=== PATIENT | male | born 1945 | race Caucasian/White ===

== ENCOUNTER 2018-10-07 15:12 | Emergency (ER) | payer MEDICARE, BC ==
[2018-10-07] MEDS ORDERED: Lidocaine 1% 20 ML MDV INJECT ONE (15:17)
[2018-10-07] MEDS ORDERED: Bacitracin Oint 1 GM U/D Packet TOP ONE (15:18)
[2018-10-07] MEDS ORDERED: Diphtheria,Pertussis(Acell),Tetanus Vaccine 0.5 ML SDV IM ONE (15:22)
[2018-10-07 15:41] VITALS: BP 124/53
--- NOTE | 2018-10-07 16:48 | EDM.PDOC ---
ED HPI GENERAL MEDICAL PROBLEM - General Chief Complaint: Head Injury Stated Complaint: HEAD WOUND, FALL OFF LADDER Time Seen by Provider: 10/07/18 16:41 Source of Information: Reports: Patient History Limitations: Reports: No Limitations - History of Present Illness INITIAL COMMENTS - FREE TEXT/NARRATIVE: pt fell off of a ladder and hit the rt side of his head on the cement. He was not knocked out. He did have a 2 inch laceration on the rt side of his head. He is covered with blood. He has a pumper in the wound that is causing heavy bleeding. Onset: Today, Sudden Duration: Hour(s): Location: Reports: Head Associated Symptoms: Reports: No Other Symptoms - Related Data Allergies Allergy/AdvReac Type Severity Reaction Status Date / Time epinephrine Allergy Bradycardia Verified 10/07/18 15:29 cottonseed oil Allergy Rash Uncoded 10/07/18 15:29 Home Meds: Home Meds Simvastatin [Zocor] 40 mg PO DAILY 04/22/13 [History] hydroCHLOROthiazide [Hydrochlorothiazide] 12.5 mg PO DAILY 04/22/13 [History] Aspirin [Adult Low Dose Aspirin EC] 1 tab PO DAILY 04/25/13 [History] Multivitamin [Multi Vitamin Daily] 1 tab PO DAILY 04/25/13 [History] Cholecalciferol (Vitamin D3) [Vitamin D3] 1,000 unit PO DAILY 01/19/17 [History] Docusate Sodium [Colace] 100 mg PO DAILY 01/19/17 [History] Lisinopril [Prinivil] 40 mg PO DAILY 01/19/17 [History] Tadalafil [Cialis] 5 mg PO DAILY 01/19/17 [History] amLODIPine Besylate [Amlodipine Besylate] 5 mg PO DAILY 01/19/17 [History] Clopidogrel [Plavix] 1 tab PO DAILY 05/26/18 [History] Finasteride 1 tab PO DAILY 05/26/18 [History] Past Medical History Cardiovascular History: Reports: High Cholesterol, Hypertension Respiratory History: Reports: COPD Genitourinary History: Reports: BPH - Past Surgical History Cardiovascular Surgical History: Reports: Coronary Artery Bypass, Coronary Artery Stent Social & Family History - Tobacco Use Smoking Status *Q: Never Smoker ED ROS GENERAL - Review of Systems Review Of Systems: See Below Constitutional: Reports: No Symptoms HEENT: Reports: No Symptoms, Other (pupils are equal and reactive. ) Respiratory: Reports: No Symptoms Cardiovascular: Reports: No Symptoms Endocrine: Reports: No Symptoms GI/Abdominal: Reports: No Symptoms : Reports: No Symptoms Musculoskeletal: Reports: No Symptoms Skin: Reports: No Symptoms Neurological: Reports: Other (pt has swelling on the rt side of his head and there is a 2 inch laceration with a pumper in the middle of the wound. ) Psychiatric: Reports: No Symptoms ED EXAM, HEAD INJURY - Physical Exam Exam: See Below Text/Narrative:: Pt arrived with a laceration on the rt side of his head with a large pumper in the center. He is alert and oriented. He is on plavix and asa. Exam Limited By: No Limitations General Appearance: Alert, Mild Distress Head: Other ( Pt has a 2 inch laceration on the rt side of the head. The is infiltrated with lidocaine. All hematom,a was expressed. The wound was scrubbed well. Because of the bleeding deep bites were taken with the stitches. The wound was closed tightlt with 3-0 ethilon. The bleeding was brought under control nicely. A cat scan of the head was done. A pressure dressing was applied tightly. ) Ears: Normal TMs Nose: Normal Inspection Throat/Mouth: Normal Inspection Neck: Non-Tender Respiratory: No Respiratory Distress Cardiovascular: Regular Rate, Rhythm GI/Abdominal Exam: Soft, Non-Tender Neurologic: Alert, Oriented x 3, Other (pt has a large swelling on the rt side of his head. He has a 2 inch laceration on the scalp. ) Course - Vital Signs Last Recorded V/S: Last Vital Signs Temp 36.3 C 10/07/18 15:40 Pulse 64 10/07/18 15:40 Resp 14 10/07/18 15:40 BP 124/53 L 10/07/18 15:40 Pulse Ox 98 10/07/18 15:40 - Orders/Labs/Meds Orders: Active Orders 24 hr Category Date Time Status Vaccines to be Administered [RC] PER UNIT ROUTINE Care 10/07/18 15:22 Active Labs: Laboratory Tests 10/07/18 Range/Units 16:17 Hgb 12.3 (12.0-15.0) g/dL Meds: Medications Discontinued Medications Generic Name Dose Route Start Last Admin Trade Name Freq PRN Reason Stop Dose Admin Bacitracin 1 dose 10/07/18 15:18 Bacitracin Oint 1 Gm TOP 10/07/18 15:19 ONETIME ONE Diphtheria/Tetanus/Acell Pertussis 0.5 ml 10/07/18 15:22 Adacel IM 10/07/18 15:23 .ONCE ONE Lidocaine HCl 20 ml 10/07/18 15:17 Xylocaine 1% INJECT 10/07/18 15:18 ONETIME ONE - Re-Assessments/Exams Free Text/Narrative Re-Assessment/Exam: 10/07/18 16:50 procedure was described earlier. Pt is doing well he was taken to a shower and cleaned up before the pressure dressing was applied. v 10/07/18 17:05 cat scan of the head was normal. Departure - Departure Time of Disposition: 17:04 Disposition: Home, Self-Care 01 Condition: Fair Clinical Impression: Scalp laceration - Discharge Information Referrals: PCP,None [Primary Care Provider] - Forms: ED Department Discharge Care Plan Goals: stitch removal in 7-8 days, keep the wound dry nor further ointments. - My Orders Last 24 Hours: My Active Orders 10/07/18 15:22 Vaccines to be Administered [RC] PER UNIT ROUTINE - Assessment/Plan Last 24 Hours: My Active Orders 10/07/18 15:22 Vaccines to be Administered [RC] PER UNIT ROUTINE
--- NOTE | 2018-10-07 17:03 | CRLCT ---
INDICATION: Blow to right side of head. Laceration. TECHNIQUE: CT head without IV contrast. FINDINGS: Large area of soft tissue swelling/hematoma involving the right superior and posterior lateral mid and upper parietal scalp with large hematoma measuring 7-8 cm. No skull fracture. No intracranial hemorrhage, edema, or mass effect. Mild cerebral and minimal cerebellar atrophy. 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 Remainder negative. IMPRESSION: Large hematoma and soft tissue swelling right parietal scalp without skull fracture or acute intracranial disease including no acute intracranial hemorrhage. Chronic intracranial disease as detailed above. Please note that all CT scans at this facility use dose modulation, iterative reconstruction, and/or weight-based dosing when appropriate to reduce radiation dose to as low as reasonably achievable. Dictated by Sincere Mendez MD @ Oct 07 2018 4:57PM Signed by Dr. Sincere Mendez @ Oct 07 2018 5:00PM
== END 2018-10-07 17:41 | disposition home or self-care (01) ==
LOC: JP.ED 15:12
DX: S01.01XA Laceration without foreign body of scalp, initial encounter (principal); Z23 Encounter for immunization; W11.XXXA Fall on and from ladder, initial encounter; Z79.82 Long term (current) use of aspirin; Z79.899 Other long term (current) drug therapy
CPT/HCPCS: 12002; 36415; 70450; 85018; 90471; 90715; 99284; J2001

== ENCOUNTER 2018-12-14 06:36 | Day surgery (SDC) | payer MEDICARE, BC ==
[2018-12-14] MEDS ORDERED: Lactated Ringers 1,000 ML IV SCH (07:00)
[2018-12-14] MEDS ORDERED: Propofol 200 MG/20 ML SDV ONE ×2 (07:34→08:17)
[2018-12-14] MEDS ORDERED: fentaNYL 100 MCG/2 ML SDV ONE (07:34)
[2018-12-14 09:32] VITALS: BP 148/82
--- NOTE | 2018-12-15 08:02 | PROC ---
DATE OF PROCEDURE: 12/14/2018 SURGEON: Jon Omalley MD INDICATIONS: Jacob is a 73-year-old male, who comes in because of gastrointestinal blood loss. PROCEDURE IN DETAIL: The risks and benefits were explained to the patient. He was taken to the OR. Anesthesia was given by nurse surgical elastic knitter. During the procedure, we used 100 mcg of fentanyl and 250 mg of propofol. The Olympus 180L scope was used. With a gloved finger, the rectum was examined and no obvious pathology noted on the rectum, as well as the prostate. The tube was placed into the rectum and advanced under direct vision. At the mid descending at 50 cm, significant erythema noted. The tube was advanced further and did get to the cecum with some difficulty. Upon retraction of the tube, we noted a small lesion in the mid ascending colon. This is behind an area we could not get to for a biopsy. We tried multiple times. The tube was retracted, and at 50 cm noted significant erythema again, appeared to be like a colitis type erythema. Pictures were taken of this and biopsies were done. The remainder of the colon was unremarkable. There was minimal blood loss to no blood loss at all. The rectum examination was unremarkable. The tube was removed. The patient tolerated the procedure well. PREOPERATIVE DIAGNOSIS: Gastrointestinal blood loss. POSTOPERATIVE DIAGNOSIS: Lesion at mid ascending, unable to encounter to biopsy. There is an erythematous area in the mid descending colon. This was biopsied consistent with colitis. Biopsy report is pending. This gentleman will need another colonoscopy at a scheduled time. We will treat once we get the diagnosis confirmed by pathology. Jon Omalley MD /[id number]
== END 2018-12-14 09:59 | disposition home or self-care (01) ==
LOC: JP.SDS 06:36
PROVIDERS: ATTEND Internal Medicine
DX: K62.5 Hemorrhage of anus and rectum (principal); K63.89 Other specified diseases of intestine; K21.9 Gastro-esophageal reflux disease without esophagitis; E78.5 Hyperlipidemia, unspecified; E66.9 Obesity, unspecified; Z68.34 Body mass index [BMI] 34.0-34.9, adult; Z88.8 Allergy status to other drugs, medicaments and biological substances; Z95.1 Presence of aortocoronary bypass graft
CPT/HCPCS: 45380; J2704; J3010; J7120; 88305

== ENCOUNTER 2022-11-18 06:27 | Day surgery (SDC) | payer MEDICARE, BC ==
[2022-11-18] MEDS: Dextrose 5%-Lactated Ringers 1,000 ML IV SCH ×3 (07:05→20:10)
[2022-11-18] MEDS ORDERED: Albuterol/Ipratropium 3.0-0.5 MG/3 ML Neb Soln NEB ONE (07:30)
[2022-11-18] MEDS ORDERED: Lidocaine 1% 50 ML MDV ONE (07:34)
[2022-11-18] MEDS ORDERED: Midazolam 1 MG/ML 2 ML SDV ONE (07:36)
[2022-11-18] MEDS ORDERED: fentaNYL 100 MCG/2 ML SDV ONE (07:36)
[2022-11-18] MEDS ORDERED: Propofol 200 MG/20 ML SDV ONE ×3 (07:36→09:13)
[2022-11-18] MEDS ORDERED: ceFAZolin 2 GM in Premix Bag 1 BAG IV ONE (07:45)
[2022-11-18] MEDS ORDERED: Ketorolac 30 MG/ML SDV ONE (08:30)
[2022-11-18] MEDS ORDERED: Linezolid 600 MG/300 ML Premix Bag IRR ONE (08:41)
[2022-11-18] MEDS ORDERED: HYDROmorphone 0.5 MG/0.5 ML Syringe IVPUSH PRN (10:44)
[2022-11-18] MEDS ORDERED: HYDROmorphone 1 MG/ML Syringe IV PRN (10:45)
[2022-11-18] MEDS ORDERED: HYDROmorphone 2 MG Tab PO PRN (10:45)
[2022-11-18] MEDS: Ibuprofen 600 MG Tab PO SCH ×2 (15:58→21:26)
[2022-11-18] MEDS: Acetaminophen 500 MG Tab PO SCH ×2 (15:58→23:29)
[2022-11-18] MEDS ORDERED: atorvaSTATin 20 MG Tab PO SCH (21:00)
[2022-11-18] MEDS: Carvedilol 12.5 MG Tab PO SCH (21:25)
[2022-11-18] MEDS: Formoterol/Mometasone 200-5 MCG 8.8 GM Inhaler IH SCH (21:26)
[2022-11-18] MEDS: Docusate Sodium 100 MG Cap PO SCH (21:26)
[2022-11-18] MEDS: Lisinopril 20 MG Tab PO SCH (21:26)
[2022-11-19] MEDS: Ibuprofen 600 MG Tab PO SCH ×2 (03:45→09:30)
[2022-11-19] MEDS: Dextrose 5%-Lactated Ringers 1,000 ML IV SCH (05:47)
[2022-11-19] MEDS: Formoterol/Mometasone 200-5 MCG 8.8 GM Inhaler IH SCH (07:26)
[2022-11-19] MEDS ORDERED: Pantoprazole 40 MG Tab.CR PO SCH (07:30)
[2022-11-19] MEDS: Acetaminophen 500 MG Tab PO SCH (07:37)
[2022-11-19 08:01] VITALS: BP 168/77
[2022-11-19] MEDS ORDERED: Hydrochlorothiazide 12.5 MG Cap PO SCH (09:00)
[2022-11-19] MEDS ORDERED: Finasteride 5 MG Tab PO SCH (09:00)
[2022-11-19] MEDS ORDERED: Lisinopril 20 MG Tab PO SCH (09:00)
[2022-11-19] MEDS ORDERED: Isosorbide Mononitrate 30 MG Tab.ER PO SCH (09:00)
[2022-11-19] MEDS ORDERED: Aspirin 81 MG Tab.EC PO SCH (09:00)
[2022-11-19] MEDS ORDERED: amLODIPine 5 MG Tab PO SCH (09:00)
[2022-11-19] MEDS: Docusate Sodium 100 MG Cap PO SCH (09:26)
[2022-11-19] MEDS: Carvedilol 12.5 MG Tab PO SCH (09:27)
[2022-11-19] MEDS: Lisinopril 20 MG Tab PO SCH (09:30)
[2022-11-19 09:31] VITALS: PULSE 64
== END 2022-11-19 10:20 | disposition home or self-care (01) ==
LOC: JP.SDS 06:27 → JP.MS 10:11 → JP.SDS 11-19 10:20
PROVIDERS: ATTEND Surgery
DX: K40.30 Unilateral inguinal hernia, with obstruction, without gangrene, not specified as recurrent (principal); G57.81 Other specified mononeuropathies of right lower limb; I10 Essential (primary) hypertension; K40.90 Unilateral inguinal hernia, without obstruction or gangrene, not specified as recurrent; E78.2 Mixed hyperlipidemia; C49.9 Malignant neoplasm of connective and soft tissue, unspecified; I25.10 Atherosclerotic heart disease of native coronary artery without angina pectoris; J43.8 Other emphysema; C49.21 Malignant neoplasm of connective and soft tissue of right lower limb, including hip; C61 Malignant neoplasm of prostate; C79.51 Secondary malignant neoplasm of bone; J32.9 Chronic sinusitis, unspecified; K21.9 Gastro-esophageal reflux disease without esophagitis; E66.9 Obesity, unspecified; Z95.1 Presence of aortocoronary bypass graft; Z79.899 Other long term (current) drug therapy; Z88.6 Allergy status to analgesic agent; Z88.8 Allergy status to other drugs, medicaments and biological substances; Z88.4 Allergy status to anesthetic agent; Z20.822 Contact with and (suspected) exposure to COVID-19
CPT/HCPCS: 38531; 49507; 64772; 88305; 88307; 94640; A9270; C1713; C1781; J0131; J0690; J1885; J2001; J2020; J2250; J2704; J3010; J7121; U0002; J7620

== ENCOUNTER 2023-03-23 14:21 | Emergency (ER) | payer OTHER, MEDICARE, BC ==
[2023-03-23 14:41] VITALS: BP 195/76; PULSE 64
[2023-03-23 15:42] LABS: ALBUMIN 3.9 g/dL (3.4-5.0); CALCIUM 8.9 mg/dL (8.5-10.1); CREATININE 0.9 mg/dL (0.8-1.3); EST CRCL DRUG DOSING (CG) 72.05 mL/min; POTASSIUM,K 3.6 mmol/L (3.6-5.2)
[2023-03-23 15:42] LABS: APPEARANCE,URINE CLEAR (CLEAR); BILIRUBIN,URINE NEGATIVE (NEGATIVE); COLOR,URINE YELLOW (YELLOW); GLUCOSE,URINE NEGATIVE (NEGATIVE); KETONES,URINE NEGATIVE (NEGATIVE); LEUKOCYTE ESTERASE,URINE NEGATIVE (NEGATIVE); NITRITE,URINE NEGATIVE (NEGATIVE); OCCULT BLOOD,URINE NEGATIVE (NEGATIVE); PH,URINE 5.5 (5.0-8.0); PROTEIN,URINE TRACE mg/dL (NEGATIVE); UROBILINOGEN,URINE 0.2 EU/dL (0.2-1.0)
[2023-03-23 15:47] LABS: AMORPHOUS SEDIMENT,URINE NOT SEEN; BACTERIA,URINE NOT SEEN; EPITHELIAL CELLS,URINE RARE; MUCUS,URINE FEW; RBC,URINE NOT SEEN (0-5); WBC,URINE NOT SEEN (0-5)
== END 2023-03-23 16:12 | disposition home or self-care (01) ==
LOC: JP.ED 14:21
DX: I11.9 Hypertensive heart disease without heart failure (principal); E66.9 Obesity, unspecified; J44.9 Chronic obstructive pulmonary disease, unspecified; E78.00 Pure hypercholesterolemia, unspecified; Z79.899 Other long term (current) drug therapy; Z88.8 Allergy status to other drugs, medicaments and biological substances; Z91.018 Allergy to other foods
CPT/HCPCS: 36415; 80048; 81001; 82040; 84300; 84443; 99283

== ENCOUNTER 2024-07-23 10:42 | Emergency (ER) | payer OTHER, MEDICARE, BC ==
[2024-07-23 10:53] VITALS: BP 120/62; PULSE 60
== END 2024-07-23 12:45 | disposition home or self-care (01) ==
LOC: JP.ED 10:42
DX: H53.2 Diplopia (principal); I10 Essential (primary) hypertension; J44.9 Chronic obstructive pulmonary disease, unspecified; K21.9 Gastro-esophageal reflux disease without esophagitis; E66.9 Obesity, unspecified; Z86.16 Personal history of COVID-19; Z95.5 Presence of coronary angioplasty implant and graft; Z88.8 Allergy status to other drugs, medicaments and biological substances; Z91.018 Allergy to other foods; Z79.51 Long term (current) use of inhaled steroids; Z79.82 Long term (current) use of aspirin; Z79.899 Other long term (current) drug therapy
CPT/HCPCS: 99283